=== PATIENT | male | born 1995 | race African-American/Black ===

== ENCOUNTER 2022-12-28 15:49 | Emergency (ER) | payer SELFPAY ==
[2022-12-28] MEDS ORDERED: predniSONE 20 MG TAB ONE (17:18)
[2022-12-28 18:18] LABS: SARS-CoV-2 NAA Rapid Test Not Detected (NotDetected)
== END 2022-12-28 18:36 | disposition home or self-care (01) ==
LOC: CSHERS 15:49
DX: J45.909 Unspecified asthma, uncomplicated (principal); Z20.822 Contact with and (suspected) exposure to COVID-19
CPT/HCPCS: 71045; J7512